=== PATIENT | male | born 1950 | race Caucasian/White ===

== ENCOUNTER 2017-03-08 10:19 | Observation (INO) ==
[2017-03-08 11:27] VITALS: BP 188/84
[2017-03-08] MEDS ORDERED: LACTULOSE 20 GM/30 ML UDCUP PO PRN (12:13)
[2017-03-08] MEDS ORDERED: MAGNESIUM SULF RIDER 4 GM in PREMIX 1 EACH IV PRN (12:13)
[2017-03-08] MEDS ORDERED: ONDANSETRON 4 MG/2 ML VIAL IV PRN (12:13)
[2017-03-08] MEDS ORDERED: guaiFENesin/DM ER 600-30 MG TABLET PO PRN (12:13)
[2017-03-08] MEDS ORDERED: ZALEPLON 5 MG CAPSULE PO PRN (12:13)
[2017-03-08] MEDS ORDERED: POTASSIUM CHLORIDE 20 MEQ TABLET PO PRN (12:13)
[2017-03-08] MEDS ORDERED: MAGNESIUM SULF RIDER 2 GM in PREMIX 1 EACH IV PRN (12:13)
[2017-03-08] MEDS ORDERED: DOCUSATE SODIUM 100 MG CAPSULE PO PRN (12:13)
[2017-03-08] MEDS ORDERED: ACETAMINOPHEN 325 MG TABLET PO PRN (12:13)
[2017-03-08] MEDS ORDERED: hydrALAZINE 25 MG TABLET PO PRN (12:21)
[2017-03-08] MEDS ORDERED: PANTOPRAZOLE 40 MG TABLET PO SCH ×2 (12:30→21:00)
[2017-03-08] MEDS ORDERED: GLUCAGON 1 MG VIAL IM PRN (12:38)
[2017-03-08] MEDS ORDERED: DEXTROSE 50% 25 GM/50 ML VIAL IV PRN (12:38)
[2017-03-08 12:53] LABS: Basophils # 0.1 10*3/uL (0.0-0.2); Basophils % 0.6 % (0.0-0.8); Eosinophils # 0.2 10*3/uL (0.0-0.87); Eosinophils % 2.1 % (0.00-10.9); Hematocrit 39.4 VOL% (42.0-52.0); Hemoglobin 13.1 GM/DL (14.0-18.0); Immature Granulocytes % 0.5 %; Immature Granulocytes Absolute 0.04 #; Lymphocytes # 1.8 10*3/uL (1.4-4.0); Lymphocytes % 22.8 % (21.2-54.2); Mean Corpuscular HGB Conc 33.2 GM/DL (32-36); Mean Corpuscular Hemoglobin 32 PG (27-34); Mean Corpuscular Volume 95.2 FL (87-102); Mean Platelet Volume 9.9 FL (9.6-12.0); Monocytes # 0.8 10*3/uL (0.11-0.8); Monocytes % 10.4 % (1.7-12.7); Neutrophils % 63.6 % (38.7-73.9); Platelet Count 241 T/CUMM (130-400); Red Blood Count 4.14 MC/CUMM (3.8-5.5); Red Cell Distribution Width 13.6 % (9.3-17.3); White Blood Count 7.8 T/CUMM (4-12)
[2017-03-08 13:34] LABS: Albumin 3.9 G/DL (3.4-5.0); Bilirubin,Total 0.5 MG/DL (0.2-1.0); Calcium 8.9 MG/DL (8.5-10.1); Osmolality,Calculated 277.7 MOS/KG (273-304); Potassium 4.4 MMOL/L (3.5-5.1); Thyroid Stimulating Hormone 0.74 uIU/ml (0.358-3.74)
[2017-03-08] MEDS ORDERED: INSULIN LISPRO 100 UNIT/ML SUBCUT SCH (16:30)
[2017-03-08] MEDS ORDERED: BUDESONIDE/FORMOTEROL 160-4.5 INHALER 6 GM INH SCH (21:00)
[2017-03-08] MEDS ORDERED: GABAPENTIN 100 MG CAPSULE PO SCH (21:00)
[2017-03-08] MEDS ORDERED: ATORVASTATIN 80 MG TABLET PO SCH (21:00)
[2017-03-08] MEDS ORDERED: ENOXAPARIN 40 MG/0.4 ML SYRINGE SUBCUT SCH (21:00)
[2017-03-08] MEDS ORDERED: LOSARTAN 50 MG TABLET PO SCH (21:00)
[2017-03-09] MEDS ORDERED: LEVOTHYROXINE 125 MCG TABLET PO SCH (07:00)
[2017-03-09] MEDS ORDERED: TAMSULOSIN 0.4 MG CAPSULE PO SCH (09:00)
[2017-03-09] MEDS ORDERED: ASPIRIN CHEW 81 MG TABLET PO SCH (09:00)
[2017-03-09] MEDS ORDERED: CYANOCOBALAMIN 500 MCG TABLET PO SCH (09:00)
[2017-03-09] MEDS ORDERED: CELECOXIB 200 MG CAPSULE PO SCH (09:00)
[2017-03-09] MEDS ORDERED: FERROUS GLUCONATE 240 MG TABLET PO SCH (09:00)
[2017-03-09] MEDS ORDERED: EZETIMIBE 10 MG TABLET PO SCH (09:00)
[2017-03-09] MEDS ORDERED: FENOFIBRATE 145 MG TABLET PO SCH (09:00)
[2017-03-09] MEDS ORDERED: DESVENLAFAXINE 50 MG TABLET PO SCH (09:00)
[2017-03-09] MEDS ORDERED: MONTELUKAST 10 MG TABLET PO SCH (09:00)
== END 2017-03-08 15:51 | disposition home or self-care (01) ==
LOC: N.TELES
PROVIDERS: ADMIT Internal Medicine Cardiovascular Disease; ATTEND Internal Medicine Cardiovascular Disease

== ENCOUNTER 2017-04-04 10:23 | Inpatient (IN) ==
[2017-04-04] MEDS ORDERED: MAGNESIUM SULF RIDER 2 GM in PREMIX 1 EACH IV PRN (13:40)
[2017-04-04] MEDS ORDERED: guaiFENesin/DM ER 600-30 MG TABLET PO PRN (13:40)
[2017-04-04] MEDS ORDERED: ONDANSETRON 4 MG/2 ML VIAL IV PRN (13:40)
[2017-04-04] MEDS ORDERED: MAGNESIUM SULF RIDER 4 GM in PREMIX 1 EACH IV PRN (13:40)
[2017-04-04] MEDS ORDERED: ACETAMINOPHEN 325 MG TABLET PO PRN (13:40)
[2017-04-04] MEDS ORDERED: POTASSIUM CHLORIDE 20 MEQ TABLET PO PRN (13:40)
[2017-04-04] MEDS ORDERED: ZALEPLON 5 MG CAPSULE PO PRN (13:40)
[2017-04-04 14:34] LABS: Basophils % 0.3 % (0.0-0.8); Eosinophils # 0.1 10*3/uL (0.0-0.87); Hematocrit 35.5 VOL% (42.0-52.0); Hemoglobin 11.8 GM/DL (14.0-18.0); Immature Granulocytes % 0.5 %; Immature Granulocytes Absolute 0.03 #; Lymphocytes # 1.1 10*3/uL (1.4-4.0); Lymphocytes % 18.5 % (21.2-54.2); Mean Corpuscular HGB Conc 33.2 GM/DL (32-36); Mean Corpuscular Hemoglobin 32 PG (27-34); Mean Corpuscular Volume 97.3 FL (87-102); Mean Platelet Volume 10.3 FL (9.6-12.0); Monocytes # 1.1 10*3/uL (0.11-0.8); Monocytes % 17.9 % (1.7-12.7); Neutrophils # 3.7 10*3/uL (1.4-7.4); Neutrophils % 61.8 % (38.7-73.9); Platelet Count 184 T/CUMM (130-400); Red Blood Count 3.65 MC/CUMM (3.8-5.5); Red Cell Distribution Width 13.3 % (9.3-17.3)
[2017-04-04] MEDS: hydrALAZINE 25 MG TABLET PO SCH ×3 (14:36→23:30)
[2017-04-04 14:57] LABS: Albumin 3.8 G/DL (3.4-5.0); Bilirubin,Total 0.4 MG/DL (0.2-1.0); Calcium 9.1 MG/DL (8.5-10.1); Osmolality,Calculated 285.4 MOS/KG (273-304); Potassium 4.3 MMOL/L (3.5-5.1); Total Protein 6.1 G/DL (6.4-8.3)
[2017-04-04 15:23] LABS: Eosinophils 1 % (0-10); Lymphocytes 17 % (20-55); Segmented Neutrophils 72 % (50-85); Total Cells Counted 100
[2017-04-04 15:24] LABS: Platelet Estimate Adequate
[2017-04-04] MEDS: oxyCODONE/ACETAMINOPHEN 5-325 MG TABLET PO SCH ×2 (17:31→21:17)
[2017-04-04] MEDS: ATORVASTATIN 80 MG TABLET PO SCH (21:16)
[2017-04-04] MEDS: SOTALOL 80 MG TABLET PO SCH (21:16)
[2017-04-04] MEDS: BACLOFEN 10 MG TABLET PO SCH (21:16)
[2017-04-04] MEDS: DOCUSATE SODIUM 100 MG CAPSULE PO SCH (21:17)
[2017-04-04] MEDS: GABAPENTIN 100 MG CAPSULE PO SCH (21:17)
[2017-04-04] MEDS: SILDENAFIL 20 MG TABLET PO SCH (21:17)
[2017-04-04] MEDS: TEMAZEPAM 15 MG CAPSULE PO SCH ×2 (21:17→22:53)
[2017-04-04] MEDS: ENOXAPARIN 40 MG/0.4 ML SYRINGE SUBCUT SCH (22:19)
[2017-04-04] MEDS: LOSARTAN 50 MG TABLET PO SCH (22:19)
[2017-04-04] MEDS: BUDESONIDE/FORMOTEROL 160-4.5 INHALER 6 GM INH SCH (22:19)
[2017-04-04] MEDS: TAMSULOSIN 0.4 MG CAPSULE PO SCH (22:51)
[2017-04-04] MEDS: MONTELUKAST 10 MG TABLET PO SCH (23:30)
[2017-04-04] MEDS: FENOFIBRATE 145 MG TABLET PO SCH (23:30)
[2017-04-04] MEDS: EZETIMIBE 10 MG TABLET PO SCH (23:30)
[2017-04-05 05:30] LABS: Basophils % 0.6 % (0.0-0.8); Eosinophils # 0.1 10*3/uL (0.0-0.87); Eosinophils % 1.9 % (0.00-10.9); Hematocrit 36.9 VOL% (42.0-52.0); Hemoglobin 12.2 GM/DL (14.0-18.0); Immature Granulocytes % 0.4 %; Immature Granulocytes Absolute 0.02 #; Lymphocytes # 1.4 10*3/uL (1.4-4.0); Lymphocytes % 28.8 % (21.2-54.2); Mean Corpuscular HGB Conc 33.1 GM/DL (32-36); Mean Corpuscular Hemoglobin 32 PG (27-34); Mean Corpuscular Volume 95.6 FL (87-102); Mean Platelet Volume 10.5 FL (9.6-12.0); Monocytes # 0.9 10*3/uL (0.11-0.8); Neutrophils # 2.4 10*3/uL (1.4-7.4); Neutrophils % 50.3 % (38.7-73.9); Platelet Count 200 T/CUMM (130-400); Red Blood Count 3.86 MC/CUMM (3.8-5.5); Red Cell Distribution Width 13.6 % (9.3-17.3); White Blood Count 4.7 T/CUMM (4-12)
[2017-04-05 05:58] LABS: Calcium 8.9 MG/DL (8.5-10.1); Eosinophils 4 % (0-10); Giant Platelets Few; Hypochromasia 1+; Lymphocytes 30 % (20-55); Osmolality,Calculated 285.4 MOS/KG (273-304); Ovalocytes Slight; Platelet Estimate Adequate; Potassium 4.3 MMOL/L (3.5-5.1); Risk Ratio 2.79; Segmented Neutrophils 49 % (50-85); Total Cells Counted 100; VLDL CHOLESTEROL 32.6 MG/DL
[2017-04-05] MEDS ORDERED: FENOFIBRATE 145 MG TABLET PO SCH (09:00)
[2017-04-05] MEDS ORDERED: CELECOXIB 200 MG CAPSULE PO SCH (09:00)
[2017-04-05] MEDS ORDERED: MONTELUKAST 10 MG TABLET PO SCH (09:00)
[2017-04-05] MEDS ORDERED: EZETIMIBE 10 MG TABLET PO SCH (09:00)
[2017-04-05] MEDS: FERROUS SULFATE 325 MG TABLET PO SCH (09:51)
[2017-04-05] MEDS: CYANOCOBALAMIN 500 MCG TABLET PO SCH (09:51)
[2017-04-05] MEDS: POTASSIUM GLUCONATE 500 MG TABLET PO SCH (09:51)
[2017-04-05] MEDS: DESVENLAFAXINE 50 MG TABLET PO SCH (09:51)
[2017-04-05] MEDS: PANTOPRAZOLE 40 MG TABLET PO SCH (09:52)
[2017-04-05] MEDS: LOSARTAN 50 MG TABLET PO SCH (09:52)
[2017-04-05] MEDS: SILDENAFIL 20 MG TABLET PO SCH (09:52)
[2017-04-05] MEDS: hydrALAZINE 25 MG TABLET PO SCH ×2 (09:52→15:58)
[2017-04-05] MEDS: TAMSULOSIN 0.4 MG CAPSULE PO SCH ×2 (09:52→21:13)
[2017-04-05] MEDS: ASPIRIN CHEW 81 MG TABLET PO SCH (09:52)
[2017-04-05] MEDS: BACLOFEN 10 MG TABLET PO SCH ×2 (09:52→21:13)
[2017-04-05] MEDS: SOTALOL 80 MG TABLET PO SCH (09:52)
[2017-04-05] MEDS: oxyCODONE/ACETAMINOPHEN 5-325 MG TABLET PO SCH ×4 (09:52→21:14)
[2017-04-05] MEDS: DOCUSATE SODIUM 100 MG CAPSULE PO SCH ×2 (09:53→21:20)
[2017-04-05] MEDS: LEVOTHYROXINE 125 MCG TABLET PO SCH (10:00)
[2017-04-05] MEDS: BUDESONIDE/FORMOTEROL 160-4.5 INHALER 6 GM INH SCH ×2 (10:00→21:20)
[2017-04-05] MEDS ORDERED: MAGNESIUM SULF RIDER 4 GM in PREMIX 1 EACH IV PRN (13:29)
[2017-04-05] MEDS ORDERED: MAGNESIUM SULF RIDER 2 GM in PREMIX 1 EACH IV PRN (13:29)
[2017-04-05] MEDS ORDERED: ALBUTEROL 1.25 MG/3 ML NEB RESP TX PRN (19:26)
[2017-04-05] MEDS: ENOXAPARIN 40 MG/0.4 ML SYRINGE SUBCUT SCH (21:13)
[2017-04-05] MEDS: ATORVASTATIN 80 MG TABLET PO SCH (21:13)
[2017-04-05] MEDS: EZETIMIBE 10 MG TABLET PO SCH (21:14)
[2017-04-05] MEDS: FENOFIBRATE 145 MG TABLET PO SCH (21:14)
[2017-04-05] MEDS: GABAPENTIN 100 MG CAPSULE PO SCH (21:14)
[2017-04-05] MEDS: MONTELUKAST 10 MG TABLET PO SCH (21:14)
[2017-04-05] MEDS: TEMAZEPAM 15 MG CAPSULE PO SCH (22:46)
[2017-04-06 05:13] LABS: Basophils % 0.5 % (0.0-0.8); Eosinophils # 0.1 10*3/uL (0.0-0.87); Eosinophils % 1.5 % (0.00-10.9); Hematocrit 38.7 VOL% (42.0-52.0); Hemoglobin 12.8 GM/DL (14.0-18.0); Immature Granulocytes % 0.5 %; Immature Granulocytes Absolute 0.04 #; Lymphocytes # 1.6 10*3/uL (1.4-4.0); Lymphocytes % 18.3 % (21.2-54.2); Mean Corpuscular HGB Conc 33.1 GM/DL (32-36); Mean Corpuscular Hemoglobin 32 PG (27-34); Mean Corpuscular Volume 95.8 FL (87-102); Mean Platelet Volume 10.5 FL (9.6-12.0); Monocytes # 0.9 10*3/uL (0.11-0.8); Monocytes % 10.3 % (1.7-12.7); Neutrophils # 6.1 10*3/uL (1.4-7.4); Neutrophils % 68.9 % (38.7-73.9); Platelet Count 187 T/CUMM (130-400); Red Blood Count 4.04 MC/CUMM (3.8-5.5); Red Cell Distribution Width 13.5 % (9.3-17.3); White Blood Count 8.8 T/CUMM (4-12)
[2017-04-06 05:43] LABS: Calcium 8.7 MG/DL (8.5-10.1); Osmolality,Calculated 286.4 MOS/KG (273-304); Potassium 4.4 MMOL/L (3.5-5.1)
[2017-04-06] MEDS: POTASSIUM GLUCONATE 500 MG TABLET PO SCH (09:32)
[2017-04-06] MEDS: DESVENLAFAXINE 50 MG TABLET PO SCH (09:32)
[2017-04-06] MEDS: oxyCODONE/ACETAMINOPHEN 5-325 MG TABLET PO SCH ×4 (09:33→20:51)
[2017-04-06] MEDS: BACLOFEN 10 MG TABLET PO SCH ×2 (09:33→20:36)
[2017-04-06] MEDS: DOCUSATE SODIUM 100 MG CAPSULE PO SCH ×2 (09:33→20:36)
[2017-04-06] MEDS: CYANOCOBALAMIN 500 MCG TABLET PO SCH (09:33)
[2017-04-06] MEDS: BUDESONIDE/FORMOTEROL 160-4.5 INHALER 6 GM INH SCH ×2 (09:34→20:52)
[2017-04-06] MEDS: FERROUS SULFATE 325 MG TABLET PO SCH (09:34)
[2017-04-06] MEDS: LEVOTHYROXINE 125 MCG TABLET PO SCH (09:34)
[2017-04-06] MEDS: ASPIRIN CHEW 81 MG TABLET PO SCH (09:34)
[2017-04-06] MEDS: LOSARTAN 50 MG TABLET PO SCH (09:34)
[2017-04-06] MEDS: TAMSULOSIN 0.4 MG CAPSULE PO SCH ×2 (09:34→20:35)
[2017-04-06] MEDS: PANTOPRAZOLE 40 MG TABLET PO SCH (09:34)
[2017-04-06 10:00] LABS: Apearance,Urine CLEAR (Clear); Bilirubin,Urine Negative (Negative); Blood, Urine Negative (Negative); Glucose,Urine (UA) Negative (Negative); Ketones,Urine Negative (Negative); Nitrite,Urine Negative (Negative); Protein,Urine Negative; RBC,Urine 1 /HPF (0-4); Urine Color Yellow (Yellow); Urine Specific Gravity 1.015 (1.001-1.035); WBC,Urine <1 /HPF (0-6)
[2017-04-06] MEDS: AZITHROMYCIN 250 MG TABLET PO SCH (12:44)
[2017-04-06] MEDS: ENOXAPARIN 40 MG/0.4 ML SYRINGE SUBCUT SCH (20:35)
[2017-04-06] MEDS: FENOFIBRATE 145 MG TABLET PO SCH (20:35)
[2017-04-06] MEDS: MONTELUKAST 10 MG TABLET PO SCH (20:36)
[2017-04-06] MEDS: EZETIMIBE 10 MG TABLET PO SCH (20:36)
[2017-04-06] MEDS: ATORVASTATIN 80 MG TABLET PO SCH (20:36)
[2017-04-06] MEDS: GABAPENTIN 100 MG CAPSULE PO SCH (20:36)
[2017-04-06] MEDS: TEMAZEPAM 15 MG CAPSULE PO SCH (22:22)
[2017-04-07 05:51] LABS: Basophils % 0.3 % (0.0-0.8); Eosinophils # 0.1 10*3/uL (0.0-0.87); Eosinophils % 0.8 % (0.00-10.9); Hematocrit 38.3 VOL% (42.0-52.0); Hemoglobin 12.9 GM/DL (14.0-18.0); Immature Granulocytes % 0.5 %; Immature Granulocytes Absolute 0.04 #; Lymphocytes # 1.5 10*3/uL (1.4-4.0); Lymphocytes % 17.3 % (21.2-54.2); Mean Corpuscular HGB Conc 33.7 GM/DL (32-36); Mean Corpuscular Hemoglobin 32 PG (27-34); Mean Corpuscular Volume 94.1 FL (87-102); Mean Platelet Volume 9.9 FL (9.6-12.0); Monocytes # 0.8 10*3/uL (0.11-0.8); Monocytes % 9.7 % (1.7-12.7); Neutrophils # 6.2 10*3/uL (1.4-7.4); Neutrophils % 71.4 % (38.7-73.9); Platelet Count 167 T/CUMM (130-400); Red Blood Count 4.07 MC/CUMM (3.8-5.5); Red Cell Distribution Width 13.2 % (9.3-17.3); White Blood Count 8.7 T/CUMM (4-12)
[2017-04-07 06:23] LABS: Calcium 8.8 MG/DL (8.5-10.1); Osmolality,Calculated 284.5 MOS/KG (273-304); Potassium 4.2 MMOL/L (3.5-5.1)
[2017-04-07] MEDS: AZITHROMYCIN 250 MG TABLET PO SCH (08:45)
[2017-04-07] MEDS: CYANOCOBALAMIN 500 MCG TABLET PO SCH (08:46)
[2017-04-07] MEDS: POTASSIUM GLUCONATE 500 MG TABLET PO SCH (08:46)
[2017-04-07] MEDS: LEVOTHYROXINE 125 MCG TABLET PO SCH (08:46)
[2017-04-07] MEDS: oxyCODONE/ACETAMINOPHEN 5-325 MG TABLET PO SCH ×4 (08:46→21:39)
[2017-04-07] MEDS: DOCUSATE SODIUM 100 MG CAPSULE PO SCH ×2 (08:46→21:39)
[2017-04-07] MEDS: LOSARTAN 50 MG TABLET PO SCH (08:46)
[2017-04-07] MEDS: FERROUS SULFATE 325 MG TABLET PO SCH (08:46)
[2017-04-07] MEDS: BACLOFEN 10 MG TABLET PO SCH ×2 (08:46→21:38)
[2017-04-07] MEDS: TAMSULOSIN 0.4 MG CAPSULE PO SCH ×2 (08:46→21:38)
[2017-04-07] MEDS: ASPIRIN CHEW 81 MG TABLET PO SCH (08:46)
[2017-04-07] MEDS: BUDESONIDE/FORMOTEROL 160-4.5 INHALER 6 GM INH SCH ×2 (08:47→21:40)
[2017-04-07] MEDS: PANTOPRAZOLE 40 MG TABLET PO SCH (08:47)
[2017-04-07] MEDS: DESVENLAFAXINE 50 MG TABLET PO SCH (08:47)
[2017-04-07] MEDS: FENOFIBRATE 145 MG TABLET PO SCH (21:38)
[2017-04-07] MEDS: EZETIMIBE 10 MG TABLET PO SCH (21:38)
[2017-04-07] MEDS: ATORVASTATIN 80 MG TABLET PO SCH (21:38)
[2017-04-07] MEDS: GABAPENTIN 100 MG CAPSULE PO SCH (21:39)
[2017-04-07] MEDS: ENOXAPARIN 40 MG/0.4 ML SYRINGE SUBCUT SCH (21:40)
[2017-04-07] MEDS: MONTELUKAST 10 MG TABLET PO SCH (21:40)
[2017-04-07] MEDS: TEMAZEPAM 15 MG CAPSULE PO SCH (22:14)
[2017-04-08 05:15] LABS: Basophils % 0.4 % (0.0-0.8); Eosinophils # 0.2 10*3/uL (0.0-0.87); Hematocrit 38.4 VOL% (42.0-52.0); Hemoglobin 12.9 GM/DL (14.0-18.0); Immature Granulocytes % 0.4 %; Immature Granulocytes Absolute 0.03 #; Lymphocytes # 1.5 10*3/uL (1.4-4.0); Lymphocytes % 20.3 % (21.2-54.2); Mean Corpuscular HGB Conc 33.6 GM/DL (32-36); Mean Corpuscular Hemoglobin 32 PG (27-34); Mean Corpuscular Volume 93.7 FL (87-102); Mean Platelet Volume 10.3 FL (9.6-12.0); Monocytes # 0.9 10*3/uL (0.11-0.8); Monocytes % 12.9 % (1.7-12.7); Neutrophils # 4.6 10*3/uL (1.4-7.4); Platelet Count 179 T/CUMM (130-400); Red Cell Distribution Width 12.9 % (9.3-17.3); White Blood Count 7.3 T/CUMM (4-12)
[2017-04-08] MEDS ORDERED: ceFAZolin 1,000 MG in SYRINGE 1 EACH IV ONE (05:30)
[2017-04-08 05:38] LABS: Osmolality,Calculated 289.3 MOS/KG (273-304); Potassium 4.3 MMOL/L (3.5-5.1)
[2017-04-08] MEDS ORDERED: ceFAZolin 1,000 MG VIAL IRRIG ONE (06:30)
[2017-04-08] MEDS ORDERED: AZITHROMYCIN 250 MG TABLET PO SCH (11:36)
[2017-04-08] MEDS ORDERED: ALBUTEROL 1.25 MG/3 ML NEB RESP TX SCH (13:00)
[2017-04-08] MEDS ORDERED: HEPARIN/NACL 0.9% 2 UNITS/ML 1,000 ML IV ONE (13:56)
[2017-04-08] MEDS ORDERED: LIDOCAINE 2% 20 ML VIAL ONE (13:56)
[2017-04-08] MEDS: ALBUTEROL/IPRATROPIUM 3 ML NEB RESP TX SCH ×2 (14:00→19:47)
[2017-04-08] MEDS ORDERED: ceFAZolin 1,000 MG VIAL ONE (14:00)
[2017-04-08] MEDS ORDERED: fentaNYL 100 MCG/2 ML VIAL ONE ×2 (14:13→14:32)
[2017-04-08] MEDS ORDERED: MIDAZOLAM 2 MG/2 ML VIAL ONE ×2 (14:13→14:32)
[2017-04-08] MEDS ORDERED: TISSUE ADHESIVE 1 EACH APPLICATOR TOP ONE (14:48)
[2017-04-08] MEDS ORDERED: oxyCODONE/ACETAMINOPHEN 5-325 MG TABLET PO PRN (15:05)
[2017-04-08] MEDS: BUDESONIDE/FORMOTEROL 160-4.5 INHALER 6 GM INH SCH ×3 (16:09→21:20)
[2017-04-08] MEDS: BACLOFEN 10 MG TABLET PO SCH ×2 (16:09→21:19)
[2017-04-08] MEDS: DOCUSATE SODIUM 100 MG CAPSULE PO SCH ×2 (16:09→21:19)
[2017-04-08] MEDS: LOSARTAN 50 MG TABLET PO SCH (16:09)
[2017-04-08] MEDS: TAMSULOSIN 0.4 MG CAPSULE PO SCH ×2 (16:09→21:20)
[2017-04-08] MEDS: oxyCODONE/ACETAMINOPHEN 5-325 MG TABLET PO SCH (16:35)
[2017-04-08] MEDS: AZITHROMYCIN 250 MG TABLET PO SCH (16:36)
[2017-04-08] MEDS: POTASSIUM GLUCONATE 500 MG TABLET PO SCH (16:42)
[2017-04-08] MEDS: DESVENLAFAXINE 50 MG TABLET PO SCH (16:42)
[2017-04-08] MEDS: PANTOPRAZOLE 40 MG TABLET PO SCH (16:42)
[2017-04-08] MEDS: CYANOCOBALAMIN 500 MCG TABLET PO SCH (16:42)
[2017-04-08] MEDS: FERROUS SULFATE 325 MG TABLET PO SCH (16:42)
[2017-04-08] MEDS: LEVOTHYROXINE 125 MCG TABLET PO SCH (16:42)
[2017-04-08] MEDS: ASPIRIN CHEW 81 MG TABLET PO SCH (16:43)
[2017-04-08] MEDS: ceFAZolin 1,000 MG in SYRINGE 1 EACH IV SCH (21:17)
[2017-04-08] MEDS: ENOXAPARIN 40 MG/0.4 ML SYRINGE SUBCUT SCH (21:18)
[2017-04-08] MEDS: EZETIMIBE 10 MG TABLET PO SCH (21:19)
[2017-04-08] MEDS: MONTELUKAST 10 MG TABLET PO SCH (21:19)
[2017-04-08] MEDS: FENOFIBRATE 145 MG TABLET PO SCH (21:19)
[2017-04-08] MEDS: GABAPENTIN 100 MG CAPSULE PO SCH (21:20)
[2017-04-08] MEDS: ATORVASTATIN 80 MG TABLET PO SCH (21:20)
[2017-04-08] MEDS: TEMAZEPAM 15 MG CAPSULE PO SCH (21:53)
[2017-04-09] MEDS: ALBUTEROL/IPRATROPIUM 3 ML NEB RESP TX SCH ×2 (00:44→06:55)
[2017-04-09 02:31] LABS: Basophils % 0.2 % (0.0-0.8); Eosinophils # 0.1 10*3/uL (0.0-0.87); Hemoglobin 13.6 GM/DL (14.0-18.0); Immature Granulocytes % 0.3 %; Immature Granulocytes Absolute 0.03 #; Lymphocytes # 1.8 10*3/uL (1.4-4.0); Lymphocytes % 19.7 % (21.2-54.2); Mean Corpuscular Hemoglobin 32 PG (27-34); Mean Corpuscular Volume 92.8 FL (87-102); Mean Platelet Volume 10.3 FL (9.6-12.0); Monocytes # 0.9 10*3/uL (0.11-0.8); Monocytes % 9.3 % (1.7-12.7); Neutrophils # 6.4 10*3/uL (1.4-7.4); Neutrophils % 69.5 % (38.7-73.9); Platelet Count 197 T/CUMM (130-400); Red Blood Count 4.31 MC/CUMM (3.8-5.5); White Blood Count 9.2 T/CUMM (4-12)
[2017-04-09 03:19] LABS: Calcium 8.9 MG/DL (8.5-10.1); Osmolality,Calculated 284.5 MOS/KG (273-304)
[2017-04-09 03:20] LABS: Calcium 8.9 MG/DL (8.5-10.1); Osmolality,Calculated 285.4 MOS/KG (273-304)
[2017-04-09] MEDS: ceFAZolin 1,000 MG in SYRINGE 1 EACH IV SCH (05:56)
[2017-04-09] MEDS: DESVENLAFAXINE 50 MG TABLET PO SCH (08:34)
[2017-04-09] MEDS: CYANOCOBALAMIN 500 MCG TABLET PO SCH (08:34)
[2017-04-09] MEDS: ASPIRIN CHEW 81 MG TABLET PO SCH (08:34)
[2017-04-09] MEDS: DOCUSATE SODIUM 100 MG CAPSULE PO SCH (08:34)
[2017-04-09] MEDS: PANTOPRAZOLE 40 MG TABLET PO SCH (08:34)
[2017-04-09] MEDS: LOSARTAN 50 MG TABLET PO SCH (08:34)
[2017-04-09] MEDS: POTASSIUM GLUCONATE 500 MG TABLET PO SCH (08:34)
[2017-04-09] MEDS: FERROUS SULFATE 325 MG TABLET PO SCH (08:35)
[2017-04-09] MEDS: BACLOFEN 10 MG TABLET PO SCH (08:35)
[2017-04-09] MEDS: TAMSULOSIN 0.4 MG CAPSULE PO SCH (08:35)
[2017-04-09] MEDS: LEVOTHYROXINE 125 MCG TABLET PO SCH (08:35)
[2017-04-09] MEDS ORDERED: METOPROLOL TARTRATE 50 MG TABLET PO SCH (09:00)
[2017-04-09] MEDS: BUDESONIDE/FORMOTEROL 160-4.5 INHALER 6 GM INH SCH (09:51)
[2017-04-09 11:42] VITALS: BP 128/70
== END 2017-04-09 13:54 | disposition home or self-care (01) | DRG 243 ==
LOC: N.ADMINP 10:23 → N.TELES 11:39
PROVIDERS: ADMIT Internal Medicine Cardiovascular Disease; ATTEND Internal Medicine Cardiovascular Disease